=== PATIENT | female | born 1985 | race African-American/Black ===

== ENCOUNTER 2017-07-16 21:12 | Emergency (ER) | payer SELFPAY ==
--- NOTE | 2017-07-16 23:52 | ER ---
Nurse's Notes [facility] Name: Kristy Goldman Age: 32 yrs Sex: Female : 1985 Arrival Date: 07/16/2017 Time: 21:16 Bed 12 Private MD: Diagnosis: Wheezing;Scabies;Psoriasis, unspecified Presentation: 07/16 21:32 Presenting complaint: Patient states: Itchy red spots on arms, abdomen, and legs for 4 aj days. Transition of care: patient was not received from another setting of care. Onset of symptoms was July 12, 2017. Care prior to arrival: None. 21:32 Method Of Arrival: Ambulatory 21:32 Acuity: ERIS 4 aj Triage Assessment: 21:33 General: Appears in no apparent distress. comfortable, Behavior is calm, cooperative, aj appropriate for age. Pain: Denies pain. Neuro: Level of Consciousness is awake, alert, obeys commands, Oriented to person, place, time, situation. Respiratory: Airway is patent Respiratory effort is even, unlabored, Respiratory pattern is regular, symmetrical. Derm: Rash noted that is itchy, red, on abdomen, right arm, left arm, right leg and left leg. 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 - Social history:: Smoking status: Patient uses tobacco products, smokes one pack cigarettes per day. Screenin:58 Abuse screen: Denies threats or abuse. Nutritional screening: No deficits noted. fc Tuberculosis screening: No symptoms or risk factors identified. Fall Risk None identified. Assessment: 22:58 General: Appears in no apparent distress. comfortable, Behavior is calm, cooperative, appropriate for age. Pain: Denies pain. Neuro: Level of Consciousness is awake, alert, obeys commands, Oriented to person, place, time, situation. Cardiovascular: No deficits noted. Respiratory: No deficits noted. GI: No deficits noted. : No deficits noted. EENT: No deficits noted. Derm: Skin is pink, warm \T\ dry. Rash noted that is itchy, papular, red, on left leg and right leg and left arm and right arm and abdomen. 22:59 Musculoskeletal: Circulation, motion, and sensation intact. Capillary refill < 3 fc seconds, Range of motion: intact in all extremities. 23:44 Reassessment: No changes from previously documented assessment. Patient and/or family fc updated on plan of care and expected duration. Pain level reassessed. Patient is alert, oriented x 3, equal unlabored respirations, skin warm/dry/pink. Vital Signs: 21:33 BP 139 / 99; Pulse 88; Resp 20; Temp 98.3; Pulse Ox 99% on R/A; Weight 86.18 kg; Height aj 5 ft. 9 in. (175.26 cm); Pain 0/10; 21:33 Body Mass Index 28.06 (86.18 kg, 175.26 cm) aj ED Course: 21:16 Patient arrived in ED. sb2 21:33 Triage completed. aj 21:33 Arm band placed on left wrist. Patient placed in waiting room, Patient notified of wait aj time. 22:58 Patient has correct armband on for positive identification. Call light in reach. fc 22:58 No provider procedures requiring assistance completed. Patient did not have IV access fc during this emergency room visit. 23:01 [facility] sn[facility] 23:01 Garcia Reyes MD is Attending Physician. snw Administered Medications: No medications were administered Outcome: 23:51 Discharge ordered by . snw 07/17 00:06 Discharged to home ambulatory. fc Condition: good Discharge instructions given to patient, Instructed on discharge instructions, follow up and referral plans. medication usage, Demonstrated understanding of instructions, follow-up care, medications, Prescriptions given X 3. 00:07 Patient left the ED. fc Signatures: Marisa Dailey, RN RN aj Kamila Segura FNP-C DRAINAGE INSPECTOR-Csnw Ramila Islas RN RN Lizz Christina sb2 Corrections: (The following items were deleted from the chart) 07/16 21:34 21:32 Acuity: ERIS 5 aj aj 22:58 22:58 Patient has correct armband on for positive identification. Call light in reach. fc Side rails up X 1. fc
--- NOTE | 2017-07-16 23:52 | EDPHYS ---
Physician Documentation [facility] Name: Kristy Goldman Age: 32 yrs Sex: Female : 1985 Arrival Date: 07/16/2017 Time: 21:16 Bed 12 Private MD: ED Physician Garcia Reyes HPI: 07/16 23:49 This 32 yrs old Black Female presents to ER via Ambulatory with complaints of Rash. 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 - Social history:: Smoking status: Patient uses tobacco products, smokes one pack cigarettes per day. ROS: 23:49 Constitutional: Negative for fever, chills, and weight loss, Eyes: Negative for injury, snw pain, redness, and discharge, ENT: Negative for injury, pain, and discharge, Neck: Negative for injury, pain, and swelling, Cardiovascular: Negative for chest pain, palpitations, and edema, Respiratory: Negative for shortness of breath, cough, wheezing, and pleuritic chest pain, Abdomen/GI: Negative for abdominal pain, nausea, vomiting, diarrhea, and constipation, Back: Negative for injury and pain, : Negative for injury, bleeding, discharge, and swelling, MS/Extremity: Negative for injury and deformity, Neuro: Negative for headache, weakness, numbness, tingling, and seizure. 23:49 Skin: Positive for rash. Exam: 23:47 Constitutional: This is a well developed, well nourished patient who is awake, alert, snw and in no acute distress. Head/Face: Normocephalic, atraumatic. Eyes: Pupils equal round and reactive to light, extra-ocular motions intact. Lids and lashes normal. Conjunctiva and sclera are non-icteric and not injected. Cornea within normal limits. Periorbital areas with no swelling, redness, or edema. ENT: Nares patent. No nasal discharge, no septal abnormalities noted. Tympanic membranes are normal and external auditory canals are clear. Oropharynx with no redness, swelling, or masses, exudates, or evidence of obstruction, uvula midline. Mucous membranes moist. Neck: Trachea midline, no thyromegaly or masses palpated, and no cervical lymphadenopathy. Supple, full range of motion without nuchal rigidity, or vertebral point tenderness. No Meningismus. Chest/axilla: Normal chest wall appearance and motion. Nontender with no deformity. No lesions are appreciated. Cardiovascular: Regular rate and rhythm with a normal S1 and S2. No gallops, murmurs, or rubs. Normal PMI, no JVD. No pulse deficits. Respiratory: Lungs have equal breath sounds bilaterally, clear to auscultation and percussion. No rales, rhonchi. Wheezes noted bilaterally. No increased work of breathing, no retractions or nasal flaring. Abdomen/GI: Soft, non-tender, with normal bowel sounds. No distension or tympany. No guarding or rebound. No evidence of tenderness throughout. Back: No spinal tenderness. No costovertebral tenderness. Full range of motion. MS/ Extremity: Pulses equal, no cyanosis. Neurovascular intact. Full, normal range of motion. Neuro: Awake and alert, GCS 15, oriented to person, place, time, and situation. Cranial nerves II-XII grossly intact. Motor strength 5/5 in all extremities. Sensory grossly intact. Cerebellar exam normal. Normal gait. 23:47 Skin: Appearance: normal except for affected area, lesion(s), regina(s) noted, also scaly, silvery, round areas to extensor surfaces. Vital Signs: 21:33 BP 139 / 99; Pulse 88; Resp 20; Temp 98.3; Pulse Ox 99% on R/A; Weight 86.18 kg; Height aj 5 ft. 9 in. (175.26 cm); Pain 0/10; 21:33 Body Mass Index 28.06 (86.18 kg, 175.26 cm) aj MDM: 23:26 Patient medically screened. [facility] 07/17 02:07 Data reviewed: vital signs, nurses notes. Data interpreted: Pulse oximetry: on room air snw is 99 %. Interpretation: normal. Counseling: I had a detailed discussion with the patient and/or guardian regarding: the historical points, exam findings, and any diagnostic results supporting the discharge/admit diagnosis, the need for outpatient follow up, to return to the emergency department if symptoms worsen or persist or if there are any questions or concerns that arise at home. Special discussion: Based on the history and exam findings, there is no indication for further emergent testing or inpatient evaluation. I discussed with the patient/guardian the need to see the primary care provider for further evaluation of the symptoms. Administered Medications: No medications were administered Disposition: 07:05 Co-signature as Attending Physician, Garcia Reyes MD I agree with the assessment and [facility] plan of care. Disposition: 07/16/17 23:51 Discharged to Home. Impression: Wheezing, Scabies, Psoriasis, unspecified. - Condition is Stable. - Discharge Instructions: How to Use an Inhaler, Psoriasis, Scabies, Cough, Adult. - Prescriptions for Elimite 5 % Topical Cream - apply 1 application by TOPICAL route one time Wash after 12 hours.; 60 gram. Zyrtec 10 mg Oral Tablet - take 1 tablet by ORAL route once daily As needed; 20 tablet. Albuterol Sulfate 90 mcg/actuation - inhale 1-2 puff by INHALATION route every 4-6 hours; 1 Inhaler. - Medication Reconciliation Form, Thank You Letter, Antibiotic Education, Prescription Opioid Use form. - Follow up: Private Physician; When: 2 - 3 days; Reason: Recheck today's complaints, Continuance of care, Re-evaluation by your physician. Follow up: Emergency Department; When: As needed; Reason: Worsening of condition. Signatures: Marisa Dailey, RN Garcia Huang MD MD cha Therrien, Shelly, SLOT HOST-C SLOT HOST-Csnw Ramila Islas, RN RN
== END 2017-07-17 00:07 | disposition home or self-care (01) ==
LOC: ER 21:12
DX: L40.9 Psoriasis, unspecified (principal); B86 Scabies; R06.2 Wheezing
CPT/HCPCS: 99282

== ENCOUNTER 2017-11-08 21:15 | Emergency (ER) | payer SELFPAY ==
--- OUTSIDE RECORDS SUMMARY | 2017-11-08 21:18 | XMS REPORT ---
:1985 [facility] Address [address] [place] [address] [address]. [address] [place] [address] Care Team Providers Name Role Phone DR ROBERT DANIELS Unavailable Unavailable Problems This patient has no known problems. Allergies, Adverse Reactions, Alerts This patient has no known allergies or adverse reactions. Medications This patient has no known medications. Encounters Start End Encounter Admission Attending Care Care Encounter Date/Time Date/Time Type Type Clinicians Facility Department ID 2017-11-06 2017-11-06 Outpatient E ROBERT DANIELS [facility] [id number] 19:15:00 19:15:00 Results Test Description Test Time Test Comments Text Results Atomic Results Result Comments CT NECK W/CONTRAST *OW* 2017-11-06 21:09:44 CT soft tissue neck with contrastHISTORY: DysphagiaLocation 16.Comparison: None.Technique: Axial images were obtained postIV contrast, with sagittal andcoronal reconstruction. 93 mL Omnipaque IV. Radiation dose reduction techniquewas utilized.Findings: Straightening of the cervical lordosis.Musculotendinous structures are intact. The no vascular anomaly. Salivary andthyroid glands are intact..No adenopathy, fluid collection, or soft tissue edema.Mild mucosal thickening along the ethmoidal septa. The airways patent. Minimalnodularity of the left vocal cord. The trachea is patent. Upper lung eason areclear.Impression:Small nodularity of the left vocal cord. Rule out polyp formation. CHEM8+ i-STAT OW 2017-11-06 19:47:00 Test Item Value Reference Range Comments SODIUM (test code=KELSY) 140 mmol/L 138-146 POTASSIUM (test code=KI) 4.2 mmol/L 3.5-4.9 CHLORIDE (test code=CLI) 106 mmol/L 98-109 CA IONIZED (test code=ICAI) 1.17 mmol/L 1.12-1.32 GLUCOSE (test code=GLUI) 93 mg/dL 75-100 TCO2 (test code=TCO2) 23 mmol/L 24-29 BUN (test code=BUN1) 6 mg/dL 8-26 CREATININE (test code=CREAI) 0.9 mg/dL 0.6-1.3 ANION GAP (test code=GANG) 17.0 mmol/L URINE OW2017-11-06 19:46:00 Test Item Value Reference Range Comments PREG UR (test code=PGU) Negative NEGATIVE CBC (INCLUDES AUTOMATED DIFFERENTIAL) *2017-11-06 19:41:00 Test Item Value Reference Range Comments WBC (test code=WBC) 14.4 10\S\3/uL 4.5-11.0 RBC (test code=RBC) 4.67 10\S\6/uL 4.30-5.70 HGB (test code=HBG) 13.7 g/dL 12.0-15.5 HCT (test code=HCT) 43.5 % 35.0-44.0 MCV (test code=MCV) 93.1 fL 81.0-99.0 MCH (test code=MCH) 29.3 pg 27.0-31.0 MCHC (test code=MCHC) 31.5 g/dL 32.0-36.0 RDW (test code=RDW) 12.2 % 11.5-14.5 PLT (test code=PLT) 258 10\S\3/uL 130-400 MPV (test code=MPV) 7.3 fL 9.4-12.4 NEUTROP # (test code=NE#) 10.5 10\S\3/uL 1.6-8.0 LYMPH # (test code=LY#) 2.8 10\S\3/uL 1.1-3.5 MID # (test code=GMID#) 1.0 10\S\3/uL 0.0-1.1 GRA % (test code=GRA%) 73.2 % 35.0-73.0 LYMPH % (test code=GLY%) 19.7 % 20.0-55.0 MID % (test code=GMID%) 7.1 % 0.0-10.0
[2017-11-08] MEDS ORDERED: KETOROLAC 30 MG/ML INJ ONE (21:50)
--- NOTE | 2017-11-08 21:54 | EDPHYS ---
Physician Documentation [facility] Name: Kristy Goldman Age: 32 yrs Sex: Female : 1985 Arrival Date: 11/08/2017 Time: 21:17 Bed 5 Private MD: ED Physician Henrique Padilla HPI: 11/08 21:44 This 32 yrs old Black Female presents to ER via Ambulatory with complaints of Neck pkl Pain, >24Hrs Old. 21:44 The patient or guardian complains of pain, that is acute. The symptoms are located at pkl the back of neck. Onset: The symptoms/episode began/occurred 1 week(s) ago. Seen at ED in [place] 2 days ago. Had lab. and CT Scan done. Told she has a polyp on her vocal cords. Given prescriptions Flexeril and Tylenol 4, but has not filled prescriptions.. 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 - Social history:: Smoking status: Patient uses tobacco products, smokes one-half pack cigarettes per day, Patient uses alcohol, occasionally. Patient/guardian denies using street drugs. - Ebola Screening: : No symptoms or risks identified at this time. ROS: 21:44 Eyes: Negative for injury, pain, redness, and discharge, ENT: Negative for injury, pkl pain, and discharge. 21:44 Neck: Positive for pain with movement, of the back of neck. 21:44 Cardiovascular: Negative for chest pain. 21:44 Respiratory: Negative for cough, shortness of breath. 21:44 Abdomen/GI: Negative for abdominal pain, nausea, vomiting, and diarrhea. 21:44 Back: Negative for acute changes. 21:44 : Negative for urinary symptoms. 21:44 MS/extremity: Negative for acute changes. 21:44 Skin: Negative for rash. 21:44 Neuro: Negative for altered mental status. Exam: 21:44 Head/Face: Normocephalic, atraumatic. Eyes: Pupils equal round and reactive to light, pkl extra-ocular motions intact. Lids and lashes normal. Conjunctiva and sclera are non-icteric and not injected. Cornea within normal limits. Periorbital areas with no swelling, redness, or edema. ENT: Nares patent. No nasal discharge, no septal abnormalities noted. Tympanic membranes are normal and external auditory canals are clear. Oropharynx with no redness, swelling, or masses, exudates, or evidence of obstruction, uvula midline. Mucous membranes moist. 21:44 Neck: ROM/movement: pain, that is moderate, with any movement. 21:44 Chest/axilla: Exam negative for acute changes. 21:44 Cardiovascular: Rate: normal, Rhythm: regular. 21:44 Respiratory: the patient does not display signs of respiratory distress, Respirations: normal. 21:44 Abdomen/GI: Exam negative for acute changes. 21:44 Back: Exam negative for acute changes. 21:44 : Exam negative for acute changes. 21:44 Musculoskeletal/extremity: Exam is negative for acute changes. 21:44 Skin: Exam negative for rash. 21:44 Neuro: Exam negative for acute changes. Vital Signs: 21:36 BP 137 / 91; Pulse 77; Resp 18 S; Temp 98.4(O); Pulse Ox 99% on R/A; Weight 88.45 kg bb (R); Height 5 ft. 9 in. (175.26 cm) (R); Pain 10/10; 21:36 Body Mass Index 28.80 (88.45 kg, 175.26 cm) bb MDM: 21:23 Patient medically screened. pkl 21:44 Data reviewed: vital signs, nurses notes. pkl Administered Medications: 21:48 Drug: TORadol 60 mg Route: IM; Site: right deltoid; jd3 22:05 Follow up: Response: No adverse reaction jd3 Disposition: 11/08/17 21:54 Discharged to Home. Impression: Muscles spasm neck. Possible polyp on vocal cords. - Condition is Stable. - Work release form, Medication Reconciliation Form, Thank You Letter, Antibiotic Education, Prescription Opioid Use form. - Follow up: Marianne Clements MD; When: 1 - 2 days; Reason: Re-evaluation by your physician. - Problem is new. - Symptoms are unchanged. Signatures: Henrique Padilla MD MD pkl Nancy Causey RN RN bb Hay, Dorian, RN RN jd3 Corrections: (The following items were deleted from the chart) 21:37 21:36 Social history: Smoking status: yaw tidwell 22:06 21:54 11/08/2017 21:54 Discharged to Home. Impression: Muscles spasm neck. Possible jd3 polyp on vocal cords. Condition is Stable. Forms are Medication Reconciliation Form, Thank You Letter, Antibiotic Education, Prescription Opioid Use. Follow up: Marianne Clements; When: 1 - 2 days; Reason: Re-evaluation by your physician. Problem is new. Symptoms are unchanged. pkl
--- NOTE | 2017-11-08 21:54 | ER ---
Nurse's Notes [facility] Name: Kristy Goldman Age: 32 yrs Sex: Female : 1985 Arrival Date: 11/08/2017 Time: 21:17 Bed 5 Private MD: Diagnosis: Muscles spasm neck. Possible polyp on vocal cords Presentation: 11/08 21:33 Presenting complaint: Patient states: she is having extreme neck pain for over 7 days bb she went to the ED in [place] 2 days ago and they did labs, and a CT scan she was told she had a polyp on her vocal cords but no other findings they gave her and RX for flexeril and tylenol #4 but she has not been able to get it filled yet. She states she is also having pain when swallowing the pain in her neck is on the right side and radiates down her neck into her shoulder. Transition of care: patient was not received from another setting of care. Onset of symptoms was November 01, 2017. Risk Assessment: Do you want to hurt yourself or someone else? Patient reports no desire to harm self or others. Initial Sepsis Screen: Does the patient meet any 2 criteria? No. Patient's initial sepsis screen is negative. Does the patient have a suspected source of infection? No. Patient's initial sepsis screen is negative. Care prior to arrival: None. 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 - Social history:: Smoking status: Patient uses tobacco products, smokes one-half pack cigarettes per day, Patient uses alcohol, occasionally. Patient/guardian denies using street drugs. - Ebola Screening: : No symptoms or risks identified at this time. Screenin:36 Abuse screen: Denies threats or abuse. Nutritional screening: No deficits noted. jd3 Tuberculosis screening: No symptoms or risk factors identified. Fall Risk Ambulatory Aid- None/Bed Rest/Nurse Assist (0 pts). Gait- Normal/Bed Rest/Wheelchair (0 pts) Mental Status- Oriented to own ability (0 pts). Total Garcia Fall Scale indicates No Risk (0-24 pts). Assessment: 21:34 General: Appears uncomfortable, Behavior is cooperative, appropriate for age, anxious. jd3 Pain: Complains of pain in back of neck Quality of pain is described as sharp, tender, Pain began pt states "over a week now." Is continuous, Aggravated by increased activity. Neuro: Level of Consciousness is awake, alert, obeys commands, Oriented to person, place, time, situation, Appropriate for age. Cardiovascular: Capillary refill < 3 seconds Patient's skin is warm and dry. Respiratory: Airway is patent Respiratory effort is even, unlabored, Respiratory pattern is regular, symmetrical, Breath sounds are clear bilaterally. GI: No signs and/or symptoms were reported involving the gastrointestinal system. : No signs and/or symptoms were reported regarding the genitourinary system. EENT: No signs and/or symptoms were reported regarding the EENT system. Derm: Skin is intact, Skin is dry, Skin is normal, Skin temperature is warm. Musculoskeletal: Circulation, motion, and sensation intact. Range of motion: intact in all extremities. 22:05 Reassessment: Patient appears in no apparent distress at this time. Patient and/or jd3 family updated on plan of care and expected duration. Pain level reassessed. Patient is alert, oriented x 3, equal unlabored respirations, skin warm/dry/pink. Patient states feeling better. Vital Signs: 21:36 BP 137 / 91; Pulse 77; Resp 18 S; Temp 98.4(O); Pulse Ox 99% on R/A; Weight 88.45 kg bb (R); Height 5 ft. 9 in. (175.26 cm) (R); Pain 10/10; 21:36 Body Mass Index 28.80 (88.45 kg, 175.26 cm) bb ED Course: 21:17 Patient arrived in ED. am2 21:23 Henrique Padilla MD is Attending Physician. pkl 21:31 Dorian Hay, SHELL is Primary Nurse. jd3 21:36 Triage completed. bb 21:36 Arm band placed on. jd3 21:37 Patient has correct armband on for positive identification. Bed in low position. Call jd3 light in reach. Side rails up X 1. 21:52 Marianne Clements MD is Referral Physician. pkl 22:05 No provider procedures requiring assistance completed. Patient did not have IV access jd3 during this emergency room visit. Administered Medications: 21:48 Drug: TORadol 60 mg Route: IM; Site: right deltoid; jd3 22:05 Follow up: Response: No adverse reaction jd3 Outcome: 21:54 Discharge ordered by . pkl 22:05 Discharged to home ambulatory. jd3 22:05 Condition: stable 22:05 Discharge instructions given to patient, Instructed on discharge instructions, follow up and referral plans. Demonstrated understanding of instructions, follow-up care. 22:06 Patient left the ED. jd3 Signatures: Henrique Padilla MD MD pkl Nancy Causey, RN RN Marisa Li Jonathon, RN RN jd3 Corrections: (The following items were deleted from the chart) 21:37 21:36 Social history: Smoking status: jd3 jd3
== END 2017-11-08 22:06 | disposition home or self-care (01) ==
LOC: ER 21:15
DX: M62.838 Other muscle spasm (principal); F17.210 Nicotine dependence, cigarettes, uncomplicated; Z88.6 Allergy status to analgesic agent
CPT/HCPCS: 96372; 99283

== ENCOUNTER 2018-04-27 11:30 | Emergency (ER) | payer SELFPAY ==
--- OUTSIDE RECORDS SUMMARY | 2018-04-27 11:33 | XMS REPORT ---
:1985 [facility] Address [address] [place] [address] Care Team Providers Name Role Phone DR ROBERT DANIELS Unavailable Unavailable Problems This patient has no known problems. Allergies, Adverse Reactions, Alerts This patient has no known allergies or adverse reactions. Medications This patient has no known medications. Encounters Start End Encounter Admission Attending Care Care Encounter Date/Time Date/Time Type Type Clinicians Facility Department ID 2017-11-06 2017-11-06 Outpatient E ROBERT DANIELS [facility] [id number] 19:15:00 21:33:00 Results Test Description Test Time Test Comments [...]
[2018-04-27] MEDS ORDERED: ALBUTEROL 2.5 MG/3 ML NEB SOL ONE (12:39)
--- NOTE | 2018-04-27 13:17 | RAD REPORT ---
EXAM DESCRIPTION: Linden Canales (2 Views)04/27/2018 1:07 pm CLINICAL HISTORY: Cough COMPARISON: None FINDINGS: The lungs appear clear of acute infiltrate. The heart is normal size IMPRESSION: No acute abnormalities displayed
--- NOTE | 2018-04-27 13:31 | EDPHYS ---
Physician Documentation [facility] Name: Kristy Goldman Age: 32 yrs Sex: Female : 1985 Arrival Date: 04/27/2018 Time: 11:31 Bed 11 Private MD: None, None ED Physician Toribio Darden HPI: 04/27 13:29 This 32 yrs old Black Female presents to ER via Ambulatory with complaints of Flu gs Symptoms. 13:29 The patient or guardian reports cough, with productive sputum, that is yellow. Onset: gs The symptoms/episode began/occurred 3 day(s) ago, and became persistent. Severity of symptoms: At their worst the symptoms were moderate, in the emergency department the symptoms are unchanged. Modifying factors: The symptoms are alleviated by nothing, the symptoms are aggravated by nothing. Associated signs and symptoms: Pertinent positives: fever, Pertinent negatives: chest pain. The patient has experienced similar episodes in the past, a few times. The patient has not recently seen a physician. 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 - Social history:: Smoking status: Patient uses tobacco products, denies chronic smoking, but will smoke occasionally. - Ebola Screening: : No symptoms or risks identified at this time. ROS: 13:29 Respiratory: Positive for shortness of breath. gs 13:29 All other systems are negative. Exam: 13:29 Head/Face: Normocephalic, atraumatic. Eyes: Pupils equal round and reactive to light, gs extra-ocular motions intact. Lids and lashes normal. Conjunctiva and sclera are non-icteric and not injected. Cornea within normal limits. Periorbital areas with no swelling, redness, or edema. ENT: Nares patent. No nasal discharge, no septal abnormalities noted. Tympanic membranes are normal and external auditory canals are clear. Oropharynx with no redness, swelling, or masses, exudates, or evidence of obstruction, uvula midline. Mucous membranes moist. Neck: Trachea midline, no thyromegaly or masses palpated, and no cervical lymphadenopathy. Supple, full range of motion without nuchal rigidity, or vertebral point tenderness. No Meningismus. Chest/axilla: Normal chest wall appearance and motion. Nontender with no deformity. No lesions are appreciated. Cardiovascular: Regular rate and rhythm with a normal S1 and S2. No gallops, murmurs, or rubs. Normal PMI, no JVD. No pulse deficits. Abdomen/GI: Soft, non-tender, with normal bowel sounds. No distension or tympany. No guarding or rebound. No evidence of tenderness throughout. Back: No spinal tenderness. No costovertebral tenderness. Full range of motion. Skin: Warm, dry with normal turgor. Normal color with no rashes, no lesions, and no evidence of cellulitis. MS/ Extremity: Pulses equal, no cyanosis. Neurovascular intact. Full, normal range of motion. 13:29 Constitutional: The patient appears alert, awake, uncomfortable. 13:29 Respiratory: the patient does not display signs of respiratory distress, Respirations: tachypnea, Breath sounds: rhonchi, that are mild, are heard diffusely. Vital Signs: 11:47 BP 144 / 93; Pulse 76; Resp 24; Temp 98.0(O); Pulse Ox 100% on R/A; Weight 83.91 kg; ph Height 5 ft. 9 in. (175.26 cm); 11:47 Body Mass Index 27.32 (83.91 kg, 175.26 cm) ph MDM: 12:01 Patient medically screened. 13:29 Differential Diagnosis: Bronchitis Influenza Upper Respiratory Infection. Data gs reviewed: vital signs, nurses notes. Response to treatment: the patient's symptoms have markedly improved after treatment, and as a result, I will discharge patient. 13:35 Counseling: I had a detailed discussion with the patient and/or guardian regarding: the gs presence of at least one elevated blood pressure reading (>120/80) during this emergency department visit. Special discussion: I have referred the patient to see his PCP for further evaluation of high blood pressure. 04/27 11:46 Order name: Flu; Complete Time: 13:28 04/27 11:46 Order name: Strep; Complete Time: 13:28 04/27 12:02 Order name: XRAY Chest Pa And Lat (2 Views); Complete Time: 13:28 04/27 12:27 Order name: Throat Culture EDMS Administered Medications: 12:36 Drug: Albuterol 2.5 mg Route: Inhalation; 13:41 Follow up: Response: No adverse reaction; Marked relief of symptoms ss Disposition: 04/27/18 13:31 Discharged to Home. Impression: Acute bronchitis. - Condition is Stable. - Discharge Instructions: Acute Bronchitis, Adult, Managing Your Hypertension. - Prescriptions for Prednisone 20 mg Oral Tablet - take 1 tablet by ORAL route once daily for 5 days; 5 tablet. Albuterol Sulfate 90 mcg/actuation - inhale 1-2 puff by INHALATION route every 4-6 hours; 1 Inhaler. - Work release form, Medication Reconciliation Form, Thank You Letter, Antibiotic Education, Prescription Opioid Use form. - Follow up: Private Physician; When: 2 - 3 days; Reason: Re-evaluation by your physician. Signatures: Dispatcher [employer] EDOrquidea Pool RN RN Lilly Newton RN RN DardenToribio MD MD gs Corrections: (The following items were deleted from the chart) 13:42 13:31 04/27/2018 13:31 Discharged to Home. Impression: Acute bronchitis. Condition is ss Stable. Forms are Medication Reconciliation Form, Thank You Letter, Antibiotic Education, Prescription Opioid Use. Follow up: Private Physician; When: 2 - 3 days; Reason: Re-evaluation by your physician. gs
--- NOTE | 2018-04-27 13:31 | ER ---
Nurse's Notes [facility] Name: Kristy Goldman Age: 32 yrs Sex: Female : 1985 Arrival Date: 04/27/2018 Time: 11:31 Bed 11 Private MD: None, None Diagnosis: Acute bronchitis Presentation: 04/27 11:46 Presenting complaint: Patient states: Productive cough, SOB, body aches and sore throat ph x 3 days, denies N/D, reports 1 episode of vomiting after coughing episode. Transition of care: patient was not received from another setting of care. Onset of symptoms was April 27, 2018. Risk Assessment: Do you want to hurt yourself or someone else? Patient reports no desire to harm self or others. Initial Sepsis Screen: Does the patient meet any 2 criteria? No. Patient's initial sepsis screen is negative. Does the patient have a suspected source of infection? No. Patient's initial sepsis screen is negative. Care prior to arrival: None. 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 - Social history:: Smoking status: Patient uses tobacco products, denies chronic smoking, but will smoke occasionally. - Ebola Screening: : No symptoms or risks identified at this time. Screenin:53 Abuse screen: Denies threats or abuse. Denies injuries from another. Nutritional ph screening: No deficits noted. Tuberculosis screening: No symptoms or risk factors identified. Fall Risk None identified. Assessment: 11:49 General: Appears in no apparent distress. uncomfortable, Behavior is cooperative, ph appropriate for age, anxious, crying. Pain: Complains of pain in " all over". Neuro: Level of Consciousness is awake, alert, obeys commands, Oriented to person, place, time, situation. Cardiovascular: Capillary refill < 3 seconds in bilateral fingers Patient's skin is warm and dry. Respiratory: Reports cough that is productive, Airway is patent Respiratory effort is even, unlabored, Respiratory pattern is tachypnea Breath sounds are coarse in mediastinum. GI: Patient currently denies abdominal pain, diarrhea, nausea. EENT: Reports nasal congestion nasal discharge pain when swallowing. Derm: Skin is intact, is healthy with good turgor, Skin is pink, warm \\T\\ dry. Musculoskeletal: Circulation, motion, and sensation intact. Range of motion: intact in all extremities. 13:41 Reassessment: Patient appears in no apparent distress at this time. Patient and/or ss family updated on plan of care and expected duration. Pain level reassessed. Patient is alert, oriented x 3, equal unlabored respirations, skin warm/dry/pink. Patient states feeling better. Vital Signs: 11:47 BP 144 / 93; Pulse 76; Resp 24; Temp 98.0(O); Pulse Ox 100% on R/A; Weight 83.91 kg; ph Height 5 ft. 9 in. (175.26 cm); 11:47 Body Mass Index 27.32 (83.91 kg, 175.26 cm) ph ED Course: 11:31 Patient arrived in ED. sb2 11:31 None, None is Private Physician. sb2 11:47 Triage completed. ph 11:48 Arm band placed on Patient placed in an exam room. ph 11:49 Toribio Darden MD is Attending Physician. gs 11:53 Patient has correct armband on for positive identification. Call light in reach. Door ph closed. Warm blanket given. 11:54 Lilly Newton, RN is Primary Nurse. ph 11:54 Strep Sent. ph 11:54 Flu Sent. ph 13:04 XRAY Chest Pa And Lat (2 Views) In Process Unspecified. EDMS 13:41 No provider procedures requiring assistance completed. Patient did not have IV access ss during this emergency room visit. Administered Medications: 12:36 Drug: Albuterol 2.5 mg Route: Inhalation; ss 13:41 Follow up: Response: No adverse reaction; Marked relief of symptoms ss Outcome: 13:31 Discharge ordered by . gs 13:41 Discharged to home ambulatory. ss 13:41 Condition: good 13:41 Discharge instructions given to patient, family, Instructed on discharge instructions, follow up and referral plans. medication usage, Demonstrated understanding of instructions, follow-up care, medications, Prescriptions given X 2. 13:42 Patient left the ED. ss Signatures: Dispatcher [facility] EDWY Orquidea Negrete RN RN ss Hall, Patricia, RN RN ph Toribio Darden MD MD Lizz Christina sb2
== END 2018-04-27 13:42 | disposition home or self-care (01) ==
LOC: ER 11:30
DX: J20.9 Acute bronchitis, unspecified (principal); Z72.0 Tobacco use
CPT/HCPCS: 71046; 87070; 87081; 87804; 99284

== ENCOUNTER 2019-04-30 03:53 | Emergency (ER) | payer SELFPAY ==
--- OUTSIDE RECORDS SUMMARY | 2019-04-30 03:56 | XMS REPORT ---
:1985 [facility] Address [address] [place] [address] Care Team Providers Name Role Phone DR ROBERT DANIELS Unavailable Unavailable Problems This patient has no known problems. Allergies, Adverse Reactions, Alerts This patient has no known allergies or adverse reactions. Medications This patient has no known medications. Encounters Start End Encounter Admission Attending Care Care Encounter Date/Time Date/Time Type Type Clinicians Facility Department ID 2017-11-06 2017-11-06 Outpatient [address] [facility] DANIELS [facility] [id number] 19:15:00 21:33:00 Results Test Description Test Time [...]
[2019-04-30] MEDS ORDERED: IBUPROFEN 400 MG TAB ONE (04:33)
[2019-04-30 04:40] LABS: Urine Blood TRACE (NEG); Urine Glucose NEGATIVE (NEG); Urine Protein NEGATIVE (NEG)
--- NOTE | 2019-04-30 04:48 | EDPHYS ---
Physician Documentation [facility] Name: Kristy Goldman Age: 33 yrs Sex: Female : 1985 Arrival Date: 04/30/2019 Time: 03:55 Bed 6 Private MD: ED Physician Garcia Reyes HPI: 04/30 04:15 This 33 yrs old Black Female presents to ER via Unassigned with complaints of Flu nataliia Symptoms. 04:15 This 33 yrs old Black Female presents to ER via Unassigned with complaints of Flu nataliia Symptoms. 04:15 Onset: The symptoms/episode began/occurred 4 day(s) ago. Modifying factors: The nataliia symptoms are alleviated by cool environment, the symptoms are aggravated by nothing. malaise, fever , cough . Associated signs and symptoms: Pertinent positives: fever, nausea. Severity of symptoms: At their worst the symptoms were mild in the emergency department the symptoms are unchanged. The patient has not experienced similar symptoms in the past. 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 - Coronavirus screen:: The patient has NOT traveled to [place], [place], or [place] in the past 14 days. Proceed with normal triage process as indicated. - Family history:: not pertinent. - Social history:: Smoking status: Patient reports the use of cigarette tobacco products, 1/2 pack per week. - Ebola Screening: : Patient negative for fever greater than or equal to 101.5 degrees Fahrenheit, and additional compatible Ebola Virus Disease symptoms Patient denies exposure to infectious person Patient denies travel to an Ebola-affected area in the 21 days before illness onset No symptoms or risks identified at this time. ROS: 04:15 Eyes: Negative for injury, pain, redness, and discharge, ENT: Negative for injury, nataliia pain, and discharge, Neck: Negative for injury, pain, and swelling, Cardiovascular: Negative for chest pain, palpitations, and edema, Abdomen/GI: Negative for abdominal pain, nausea, vomiting, diarrhea, and constipation, Back: Negative for injury and pain, : Negative for injury, bleeding, discharge, and swelling, MS/Extremity: Negative for injury and deformity, Skin: Negative for injury, rash, and discoloration, Neuro: Negative for headache, weakness, numbness, tingling, and seizure, Psych: Negative for depression, anxiety, suicide ideation, homicidal ideation, and hallucinations, Allergy/Immunology: Negative for hives, rash, and allergies, Endocrine: Negative for neck swelling, polydipsia, polyuria, polyphagia, and marked weight changes, Hematologic/Lymphatic: Negative for swollen nodes, abnormal bleeding, and unusual bruising. 04:15 Constitutional: Positive for fatigue, fever, malaise. 04:15 Respiratory: Positive for cough, "sounds productive". Exam: 04:15 Constitutional: This is a well developed, well nourished patient who is awake, alert, nataliia and in no acute distress. Head/Face: Normocephalic, atraumatic. Eyes: Pupils equal round and reactive to light, extra-ocular motions intact. Lids and lashes normal. Conjunctiva and sclera are non-icteric and not injected. Cornea within normal limits. Periorbital areas with no swelling, redness, or edema. ENT: Nares patent. No nasal discharge, no septal abnormalities noted. Tympanic membranes are normal and external auditory canals are clear. Oropharynx with no redness, swelling, or masses, exudates, or evidence of obstruction, uvula midline. Mucous membranes moist. Neck: Trachea midline, no thyromegaly or masses palpated, and no cervical lymphadenopathy. Supple, full range of motion without nuchal rigidity, or vertebral point tenderness. No Meningismus. Chest/axilla: Normal chest wall appearance and motion. Nontender with no deformity. No lesions are appreciated. Cardiovascular: Regular rate and rhythm with a normal S1 and S2. No gallops, murmurs, or rubs. Normal PMI, no JVD. No pulse deficits. Respiratory: Lungs have equal breath sounds bilaterally, clear to auscultation and percussion. No rales, rhonchi or wheezes noted. No increased work of breathing, no retractions or nasal flaring. Abdomen/GI: Soft, non-tender, with normal bowel sounds. No distension or tympany. No guarding or rebound. No evidence of tenderness throughout. Back: No spinal tenderness. No costovertebral tenderness. Full range of motion. Female : Normal external genitalia. Skin: Warm, dry with normal turgor. Normal color with no rashes, no lesions, and no evidence of cellulitis. MS/ Extremity: Pulses equal, no cyanosis. Neurovascular intact. Full, normal range of motion. Neuro: Awake and alert, GCS 15, oriented to person, place, time, and situation. Cranial nerves II-XII grossly intact. Motor strength 5/5 in all extremities. Sensory grossly intact. Cerebellar exam normal. Normal gait. Psych: Awake, alert, with orientation to person, place and time. Behavior, mood, and affect are within normal limits. Vital Signs: 04:18 BP 123 / 82; Pulse 88; Resp 18 S; Temp 98.2; Pulse Ox 100% on R/A; Weight 92.99 kg; iw Height 7 ft. (213.36 cm); Pain 7/10; 04:18 Body Mass Index 20.43 (92.99 kg, 213.36 cm) MDM: 04:05 Patient medically screened. [facility] 04:18 Data reviewed: vital signs, nurses notes, lab test result(s). [facility] 04/30 04:14 Order name: Influenza Screen (a \\T\\ B) [facility] 04/30 04:30 Order name: Urine Dipstick--Ancillary (enter results); Complete Time: 04:46 [facility] 04/30 04:30 Order name: Urine --Ancillary (enter results); Complete Time: 04:46 [facility] 04/30 04:30 Order name: Urine Microscopic Only [facility] 04/30 04:14 Order name: Urine Dipstick-Ancillary (obtain specimen); Complete Time: 04:33 [facility] 04/30 04:14 Order name: Urine Test (obtain specimen); Complete Time: 04:33 [facility] Administered Medications: 04:33 Drug: Motrin 800 mg Route: PO; jd3 05:00 Follow up: Response: No adverse reaction jd3 04:57 Drug: Augmentin 875 mg Route: PO; jd3 05:00 Follow up: Response: Medication administered at discharge. jd3 04:57 Drug: Tamiflu 75 mg Route: PO; jd3 05:00 Follow up: Response: Medication administered at discharge. jd3 04:57 Drug: Tessalon Perle 200 mg Route: PO; jd3 05:01 Follow up: Response: Medication administered at discharge. jd3 Disposition: 04/30/19 04:47 Discharged to Home. Impression: Malaise and fatigue, Acute upper respiratory infection, unspecified, Urinary tract infection, site not specified, Bronchitis, not specified as acute or chronic. - Condition is Stable. - Discharge Instructions: Upper Respiratory Infection, Adult, Urinary Tract Infection, Adult, Weakness, Cool Mist Vaporizer, Urinary Tract Infection, Adult, [id number]-[id number], Cough, Adult, Lnqx-nh-Wwun, Weakness, Pjcf-oe-Nfrd, Cough, Adult. - Prescriptions for Bromfed DM 2- 30-10 mg/5 mL Oral syrup - take 10 milliliter by ORAL route every 4 hours; 150 milliliter. Tamiflu 75 mg Oral Capsule - take 1 tablet by ORAL route every 12 hours for 5 days; 10 tablet. Augmentin 875- 125 mg Oral Tablet - take 1 tablet by ORAL route every 12 hours for 10 days; 20 tablet. - Work release form, Medication Reconciliation Form, Thank You Letter, Antibiotic Education, Prescription Opioid Use form. - Follow up: Private Physician; When: 2 - 3 days; Reason: Recheck today's complaints, Continuance of care, Re-evaluation by your physician. - Problem is new. - Symptoms have improved. Signatures: Dispatcher [employer] EDMS Garcia Reyes MD MD cha Williams, Irene, Dorian Gaming RN, RN RN jd3 Corrections: (The following items were deleted from the chart) 04:47 04:47 04/30/2019 04:47 Discharged to Home. Impression: Malaise and fatigue; Acute upper nataliia respiratory infection, unspecified; Urinary tract infection, site not specified. Condition is Stable. Discharge Instructions: Upper Respiratory Infection, Adult, Weakness, Cool Mist Vaporizer, Cough, Adult, Fljy-fo-Ymjq, Weakness, Sygv-ss-Xtas, Cough, Adult. Prescriptions for Bromfed DM 2-30-10 mg/5 mL Oral syrup - take 10 milliliter by ORAL route every 4 hours; 150 milliliter, Zithromax Z-Dusty 250 mg Oral Tablet - take 1 tablet by ORAL route as directed for 5 days Day 1 - take two (2) tablets one time. Day 2, 3, 4 , 5 take one (1) tablet once daily.; 6 tablet, Tamiflu 75 mg Oral Capsule - take 1 tablet by ORAL route every 12 hours for 5 days; 10 tablet. and Forms are Work release form, Medication Reconciliation Form, Thank You Letter, Antibiotic Education, Prescription Opioid Use. Follow up: Private Physician; When: 2 - 3 days; Reason: Recheck today's complaints, Continuance of care, Re-evaluation by your physician. Problem is new. Symptoms have improved. [facility] 05:02 04:47 04/30/2019 04:47 Discharged to Home. Impression: Malaise and fatigue; Acute upper jd3 respiratory infection, unspecified; Urinary tract infection, site not specified; Bronchitis, not specified as acute or chronic. Condition is Stable. Discharge Instructions: Upper Respiratory Infection, Adult, Weakness, Cool Mist Vaporizer, Cough, Adult, Wjja-tn-Ojbc, Weakness, Smkx-tb-Tzsx, Cough, Adult, Urinary Tract Infection, Adult, Urinary Tract Infection, Adult, Wgtv-jd-Vmgt. Prescriptions for Bromfed DM 2-30-10 mg/5 mL Oral syrup - take 10 milliliter by ORAL route every 4 hours; 150 milliliter, Tamiflu 75 mg Oral Capsule - take 1 tablet by ORAL route every 12 hours for 5 days; 10 tablet, Augmentin 875-125 mg Oral Tablet - take 1 tablet by ORAL route every 12 hours for 10 days; 20 tablet. and Forms are Work release form, Medication Reconciliation Form, Thank You Letter, Antibiotic Education, Prescription Opioid Use. Follow up: Private Physician; When: 2 - 3 days; Reason: Recheck today's complaints, Continuance of care, Re-evaluation by your physician. Problem is new. Symptoms have improved. [facility]
--- NOTE | 2019-04-30 04:48 | ER ---
Nurse's Notes [facility] Name: Kristy Goldman Age: 33 yrs Sex: Female : 1985 Arrival Date: 04/30/2019 Time: 03:55 Bed 6 Private MD: Diagnosis: Malaise and fatigue;Acute upper respiratory infection, unspecified;Urinary tract infection, site not specified;Bronchitis, not specified as acute or chronic Presentation: 04/30 04:17 Presenting complaint: Patient states: productive cough, chills, diff breathing X 4 iw days. Transition of care: patient was not received from another setting of care. Onset of symptoms was April 26, 2019. Risk Assessment: Do you want to hurt yourself or someone else? Patient reports no desire to harm self or others. Initial Sepsis Screen: Does the patient meet any 2 criteria? No. Patient's initial sepsis screen is negative. Does the patient have a suspected source of infection? No. Patient's initial sepsis screen is negative. Care prior to arrival: None. 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 - Coronavirus screen:: The patient has NOT traveled to [place], [place], or [place] in the past 14 days. Proceed with normal triage process as indicated. - Family history:: not pertinent. - Social history:: Smoking status: Patient reports the use of cigarette tobacco products, 1/2 pack per week. - Ebola Screening: : Patient negative for fever greater than or equal to 101.5 degrees Fahrenheit, and additional compatible Ebola Virus Disease symptoms Patient denies exposure to infectious person Patient denies travel to an Ebola-affected area in the 21 days before illness onset No symptoms or risks identified at this time. Screenin:12 Abuse screen: Denies threats or abuse. Nutritional screening: No deficits noted. jd3 Tuberculosis screening: No symptoms or risk factors identified. Fall Risk Ambulatory Aid- None/Bed Rest/Nurse Assist (0 pts). Gait- Normal/Bed Rest/Wheelchair (0 pts) Mental Status- Oriented to own ability (0 pts). Total Garcia Fall Scale indicates No Risk (0-24 pts). Assessment: 04:10 General: Appears in no apparent distress. uncomfortable, Behavior is calm, cooperative, jd3 appropriate for age, anxious. Pain: Complains of pain in head and chest Quality of pain is described as aching. Neuro: Level of Consciousness is awake, alert, obeys commands, Oriented to person, place, time, situation. Cardiovascular: Capillary refill < 3 seconds Patient's skin is warm and dry. Respiratory: Reports shortness of breath at rest cough that is productive, persistent Airway is patent Respiratory effort is even, unlabored, Respiratory pattern is symmetrical, tachypnea Breath sounds are clear bilaterally. GI: No signs and/or symptoms were reported involving the gastrointestinal system. Patient currently denies nausea, vomiting. : No signs and/or symptoms were reported regarding the genitourinary system. EENT: Reports nasal congestion. Derm: Skin is intact, Skin is dry, Skin is normal, Skin temperature is warm. Musculoskeletal: Circulation, motion, and sensation intact. Range of motion: intact in all extremities. 05:01 Reassessment: Patient appears in no apparent distress at this time. Patient and/or jd3 family updated on plan of care and expected duration. Pain level reassessed. Patient is alert, oriented x 3, equal unlabored respirations, skin warm/dry/pink. pt reported understanding of discharge instructions. Vital Signs: 04:18 BP 123 / 82; Pulse 88; Resp 18 S; Temp 98.2; Pulse Ox 100% on R/A; Weight 92.99 kg; iw Height 7 ft. (213.36 cm); Pain 7/10; 04:18 Body Mass Index 20.43 (92.99 kg, 213.36 cm) iw ED Course: 03:55 Patient arrived in ED. ds1 03:56 Garcia Reyes MD is Attending Physician. nataliia 04:10 Dorian Hay RN is Primary Nurse. jd3 04:13 Patient has correct armband on for positive identification. Bed in low position. Call jd3 light in reach. Side rails up X 1. 04:17 Triage completed. iw 04:18 Arm band placed on. iw 04:33 Influenza Screen (a \T\ B) Sent. jd3 05:01 No provider procedures requiring assistance completed. Patient did not have IV access jd3 during this emergency room visit. Administered Medications: 04:33 Drug: Motrin 800 mg Route: PO; jd3 05:00 Follow up: Response: No adverse reaction jd3 04:57 Drug: Augmentin 875 mg Route: PO; jd3 05:00 Follow up: Response: Medication administered at discharge. jd3 04:57 Drug: Tamiflu 75 mg Route: PO; jd3 05:00 Follow up: Response: Medication administered at discharge. jd3 04:57 Drug: Tessalon Perle 200 mg Route: PO; jd3 05:01 Follow up: Response: Medication administered at discharge. jd3 Outcome: 04:47 Discharge ordered by . nataliia 05:01 Discharged to home ambulatory. jd3 05:01 Condition: stable 05:01 Discharge instructions given to patient, Instructed on discharge instructions, follow up and referral plans. medication usage, Demonstrated understanding of instructions, follow-up care, medications, Prescriptions given X 3. 05:02 Patient left the ED. jd3 Signatures: Garcia Reyes MD MD cha Sanford, Demi ds1 Peggy Rodríguez, RN RN Dorian Song RN RN jd3 Corrections: (The following items were deleted from the chart) 04:12 04:10 General: Appears in no apparent distress. uncomfortable, Behavior is calm, jd3 cooperative, appropriate for age, jd3
[2019-04-30 04:53] LABS: Urine Bacteria >50 /HPF (<20); Urine RBC <5 /HPF (NONE SEEN)
[2019-04-30 04:54] LABS: Urine Culture Reflex Order REFLEXED; Urine Mucus 1+ /HPF (NONE SEEN)
[2019-04-30] MEDS ORDERED: OSELTAMIVIR 75 MG CAP ONE (04:56)
[2019-04-30] MEDS ORDERED: BENZONATATE 100 MG CAP PO ONE (04:57)
[2019-04-30] MEDS ORDERED: AMOX/K CLAV 875 MG TAB ONE (04:57)
[2019-04-30 05:47] VITALS: BP 123/82; TEMP 98.2; O2SAT 100
== END 2019-04-30 05:02 | disposition home or self-care (01) ==
LOC: ER 03:53
DX: J06.9 Acute upper respiratory infection, unspecified (principal); J40 Bronchitis, not specified as acute or chronic; N39.0 Urinary tract infection, site not specified; R53.81 Other malaise; R53.83 Other fatigue; Z88.6 Allergy status to analgesic agent
CPT/HCPCS: 81003; 81015; 81025; 87804; 99283